=== PATIENT | male | born 1960 | race Caucasian/White ===

== ENCOUNTER 2019-06-04 21:54 | Inpatient (IN) | payer BC, OTHER ==
[~2019-06-04] VITALS: Ht 170.2 cm; Wt 63.6 kg
[2019-06-04 21:56] VITALS: BP 148/92
[2019-06-04 22:28] LABS: ABSOLUTE NEUTROPHILS 2.9 thou/uL (1.4-8.2); BASOPHILS 0.8 % (0.0-2.0); EOSINOPHILS 1.6 % (0.0-3.0); HEMATOCRIT 49.2 % (42.0-52.0); HEMOGLOBIN 16.4 gm/dL (14.0-18.0); LYMPHOCYTES 39.6 % (24.0-44.0); MCH 33.7 pg (26.0-34.0); MCHC 33.4 g/dL (28.0-37.0); MCV 100.9 fL (80.0-100.0); MONOCYTES 7.4 % (1.0-8.0); PLATELET COUNT 302 thou/uL (150-400); POLYS 50.6 % (36.0-66.0); RBC 4.87 mil/uL (4.50-6.00); RDW 14.4 % (10.5-14.5); WBC 5.7 thou/uL (4.0-11.0)
[2019-06-04 22:39] LABS: URINE BILIRUBIN NEGATIVE (Negative); URINE BLOOD TRACE (Negative); URINE CLARITY CLEAR; URINE COLOR YELLOW; URINE GLUCOSE-RANDOM* NEGATIVE (Negative); URINE KETONES 1+ (Negative); URINE LEUKOCYTES-REFLEX NEGATIVE (Negative); URINE NITRITE-REFLEX NEGATIVE (Negative); URINE PROTEIN (DIPSTICK) 1+ (Negative); URINE SPECIFIC GRAVITY >= 1.030 (1.005-1.035); URINE UROBILINOGEN 0.2 E.U./dl (0.2-1.0)
[2019-06-04 22:41] LABS: ANION GAP 18 mmol/L (7-16); BUN 12 mg/dL (7-18); CALCIUM 9.6 mg/dL (8.5-10.1); CHLORIDE 98 mmol/L (98-107); CO2 23 mmol/L (21-32); CREATININE 0.9 mg/dL (0.7-1.3); GLUCOSE 60 mg/dL (74-106); POTASSIUM 4.1 mmol/L (3.5-5.1); SODIUM 139 mmol/L (136-145)
[2019-06-04 22:45] LABS: AMP/METHAMP Negative (Negative); BARBITURATES Negative (Negative); BENZODIAZEPINES Negative (Negative); COCAINE Negative (Negative); METHADONE Negative (Negative); OPIATES Negative (Negative); PCP Negative (Negative)
[2019-06-04 22:48] LABS: ALBUMIN 4.3 g/dL (3.4-5.0); SALICYLATE 5.1 mg/dL (2.8-20.0); SGOT 51 U/L (15-37); SGPT 54 U/L (30-65); TOTAL BILIRUBIN 0.5 mg/dL (<0.1-1.0); TOTAL PROTEIN 8.1 g/dL (6.4-8.2)
[2019-06-04 23:13] LABS: HYALINE CASTS 0-3 Few /LPF (None Seen); MUCUS 0-3 Light strn/LPF (None Seen); SQUAMOUS None Seen /LPF (0-3)
[2019-06-04 23:14] LABS: BACTERIA-REFLEX None Seen /HPF (None Seen); CRYSTALS None Seen /LPF (None Seen); URINE RBC None Seen /HPF (0-2); URINE WBC-REFLEX 0-5 Rare /HPF (0-5)
[2019-06-05] VITALS (7 sets, daily range): BP systolic 114–135; BP diastolic 69–86
--- NOTE | 2019-06-05 04:12 | NUR ---
Patient arrived to [facility] ED via EMS reporting weakness over the last month. Upon assessment in ED, patient reporting increased depression and SI with plan to jump off a bridge or into traffic, or "if I had a gun, I'd shoot my head off". Patient alcohol level elevated in ED to 301. Re-checked prior to arrival to floor and was 211. Patient currently on CIWA protocol. Patient mildly tachycardic while in ED and since arriving to unit. Patient reports that he was admitted to [facility] 1.5 weeks ago due to "stomach issues". Reports that they discharged him and didn't take care of his issue. When asked what his issue was, he stated that his depression and drinking is "out of control". Reports that he has been drinking daily since his mother passed approximately 5 years ago. Reports that this is how he rey with stress and depression. Patient reports that he has been living in a motel with a roomate "John" for the last 2 years. Reports that his rent got too high at his apartment and he had to move out. Patient reports a history of hyperlipidemia and hypertension but never filled the medications prescribed. Patient unaware which medications they were. Patient rports PCP Dr. Lopez at [facility]. Currently receives Regular diet, Full code. NKDA. Patient reports that he has tried to quit drinking several times and his primary side effect is tremors in his hands. Patient reports depression as 7/10, anxiety 5/10. Patient is reporting excess sleeping with 10 hours per night and taking 2-3 hour nap during the day. Reporting that he primarily eats sandwiches for his intake. Denies weight loss. Patient does have a raised, pink rash to the lateral sides of his back and upper chest wall. Denies any itching. Reports that the rash has been there "for months" and his doctor "wasn't worried about it". Denies pain or discomfort. Reports that he wants the suicidal thoughts "to be done". Denies SI at this time due to feelings that he will "finally get some help". Patient currently smokes 1 PPD. Nicotine patch ordered. Patient did request medication due to acid reflux. Patient provided box lunch in ED and states that he has acid reflux frequently, which is why he was admitted to [facility]. Declines that any medications were prescribed. ED documentation states that he left [facility] AMA, patient states this is inaccurate. Patient has a yellow/brown bruise to the top of the left forearm. Patient states it is due to an IV from when he was at [facility]. Patient provided PRN Seroquel to ease agitation and PRN Maalox for acid reflux. Patient continent of bladder upon arrival to unit. Patient reports that he has insurance through [employer], when asked if he still works there, he states yes but he hasn't been to work for a couple months. Possible delusional thoughts regarding current job status. Denies HI/AH/VH. No aggression observed. Patient laying quietly in bed at this time.
--- NOTE | 2019-06-05 12:54 | NUR ---
ASSUMED CARE AT 0700 THIS MORNING. PT. IN RECLINING CHAIR RESTING. PT. RESTING. HE ATE MEALS ON THE UNIT WITH PEERS. HIS CIWA ASSESSMENT AT 1000 WAS 10. HE WAS GIVEN ATIVAN AT 1300 WITH HIS THIAMINE FOR HIS SHAKINESS. HE HAS BEEN ALERT AND ORIENTED TIMES 4. HE HAS TAKEN HIS MEDICATIONS WITHOUT PROBLEMS. HE IS ON YELLOW (FALLS PERCAUTIONS) DUE TO HIM DETOXING. HIS AFFECT IS NEUTRAL AND MOOD SOMBER. NO PROBLEMS NOTED FROM HIM AT THIS TIME. HE CONTINUES ON CIWA AT THIS TIME. WILL CONTINUE TO ASSESS.
--- NOTE | 2019-06-05 13:26 | EKG ---
[facility] [place] [address] ELECTROCARDIOGRAM REPORT Name: TOBY BALCK Room #: [facility] ADM IN M.R.#: [id number] Admission: 06/05/19 Attend Phys: Catarino Zuniga DO Discharge: Date of : 60 Report #: [id number] THIS REPORT FOR: cc: Roberto Lopez Brady DO Lundgren,Julio C Zepeda MD [facility] ~ THIS REPORT FOR: //name// [facility] Test Date: 2019-06-05 Test Time: 09:38:30 Pat Name: TOBY BLACK Department: Room: [facility] Gender: M Bookbinder Chief: Syd JACOBO : 1960 Requested By: Catarino Zuniga Order Number: [id number] MD: Julio C Lovett Measurements Intervals [place] Rate: 105 P: 70 CT: 150 QRS: 65 QRSD: 100 T: 83 QT: 341 QTc: 451 Interpretive Statements Sinus tachycardia Anterior infarct, old No previous ECG available for comparison Electronically Signed On 06-05-2019 13:25:49 CDT by Julio C Lovett [email or web address] <ELECTRONICALLY SIGNED> By: Julio C Lovett MD, FACC 06/05/19 1325 0938 Julio C Lovett MD, [facility] /EPI
--- NOTE | 2019-06-06 02:39 | NUR ---
PT SITTING IN DAY ROOM. DENIES PAIN. REQUESTED LORAZEPAM AT HS. VERY PLEASANT 1:1 CONVERSATION. RESTING COMFORTABLY. FREQUENT OBSERVATION.
[2019-06-06 08:01] VITALS: BP 140/94
--- NOTE | 2019-06-06 13:55 | NUR ---
COOPERATIVE AND PLEASANT WITH NURSING STAFF WHEN APPROACHED FOR AM ASSESSMENT AND MEDICATIONS-SMILING AND USING HUMOR. SOCIAL WITH FEMALE PEER AT TABLE. GAIT STEADY WITHOUT ASSISITVE DEVICES. DENIES N/V-NO HAND TREMOR NOTED DURING CIWA ASSESSMENT-NO DIAPHORESIS AND DENIES N/V. BP MILDLY ELEVATED PRIOR TO AM MEDICATION AT 140/94-BP RECHECK AT APPROX 1100 130/78. DENIES SI/SH/HI-RATES DEPRESSIVE SYMPTOMS A 4 ON 1-10 SCALE. DENIES ACUTE ANXIETY AND NEED FOR PRN LORAZEPAM-STATING "I MAY NEED IT LATER" GOOD APPETITE.
[2019-06-06 19:30] VITALS: BP 126/82
--- NOTE | 2019-06-07 08:41 | NUR ---
06/06/19 MARCELINA met with pt and discussed at length the d/c plans. SW provided education and support for outpt therapy and meds management with CM at [facility]. Sw encourged pt to access the resources to help with alternate housing. pt stated that he works at [employer] and he has BCBS with them . This was reported to administration. Will look for an insurance card. Pt seemed hopeful and willing to particpate in outpt treatment.
[2019-06-07 09:14] VITALS: BP 134/80
[2019-06-07 10:03] VITALS: BP 134/80
--- NOTE | 2019-06-07 13:42 | NUR ---
Assumed care around 0700. Patient very pleasant, cooperative, and respectiful to peers and staff. alert and oriented x 4. Vitals are stable. Room air. Lungs are clear and bowel sounds are audible. he states that today he feels better and less anxious like a 2. participates in the group therapy. Takes medication and food without any problem. Denies SI/HI. Ambulates around well. Verberlizes his needs. Calm and quite at times while watching. Will continue with the plan of caare.
[2019-06-07 19:22] VITALS: BP 129/93
--- NOTE | 2019-06-07 21:52 | NUR ---
Care assumed of patient at 1915: Patient seated in dayroom at start of shift. Watching TV, interacting well with staff and peers. Alert and oriented x4. Calm, pleasant and cooperative. Bright affect, smiling. Denies SI/HI/AH/VH. Reports "some" anxiety and depression. Patient reports that his tremors to his hands "worry" him. No tremors observed when he held his hands up. No sweating, nausea reported. No delusional or paranoia behaviors observed. Denies pain or discomfort. Ate 100% HS snack. Took HS medication whole without difficulty. Requested PRN Trazodone to help him sleep this shift. Reports that he is able to fall to sleep without much difficulty but has trouble staying asleep. Patient also reports that he did not sleep well last night but this nurse was present on the unit last night. Patient then started to discover that he was having nightmares through the night. Patient denies anything sticking out in his mind of what his dreams were. Patient was able to retire to bed at a reasonable hour and appears to be resting quietly at this time.
[2019-06-08 13:14] VITALS: BP 119/75
--- NOTE | 2019-06-08 13:44 | NUR ---
0700 ASSUMED CARE OF PATIENT. PATIENT IN DAYROOM AT THAT TIME. 0810 EATING BREAKFAST, CALM AND COOPERATIVE NO C/O PAIN, ALERT + ORIENTED X4, DENIES SI STATES "I WAS LAST WEEKEND BUT NOT NOW" DENIES HI/AH/VH. PATIENT STATES ANXIETY IS A 3 ON A SCALE OF 0-10 AMD DEPRESSION IS A 3 WELL. REQUESTS A SHOWER AFTER BREAKFAST STATES THAT IS HIS GOAL. PATIENTS CONCERN IS GOING BACK TO WORK. DENIES NEEDS. COMUNICATES WELL WITH OTHERS.
[2019-06-08 20:13] VITALS: BP 121/83
[2019-06-08 21:00] VITALS: BP 121/83
--- NOTE | 2019-06-09 00:41 | NUR ---
Assumed care of patient this pm shift. Patient sitting at a table by himself in the mileu. Patient in good spirits. Patient calm and cooperative. Patients affect is normal. Patient appears to be neat and clean. Patient asked about a new medication that he is supposed to start taking that would help with his etoh issues. Patient denies hi/si. Patients assessment shows clear breath sounds, active bowel sounds, and s1 s2 heard with auscultation. We will continue to monitor.
[2019-06-09 06:06] LABS: ALBUMIN 3.3 g/dL (3.4-5.0); CALCIUM 8.9 mg/dL (8.5-10.1); CREATININE 0.9 mg/dL (0.7-1.3); POTASSIUM 4.8 mmol/L (3.5-5.1); TOTAL BILIRUBIN 0.5 mg/dL (<0.1-1.0); TOTAL PROTEIN 6.3 g/dL (6.4-8.2)
[2019-06-09 08:59] VITALS: BP 140/88
[2019-06-09 14:14] VITALS: BP 140/88
--- NOTE | 2019-06-09 14:38 | NUR ---
PATIENT WAS UP IN DAY ROOM EATING BREAKFAST WHEN CARE ASSUMED. HE IS ALERT AND ORIENTED X 3-4, ABLE TO MAKE NEED KNOWN. PATIENT TOOK ALL MEDICATION WHOLE WITHOUT DIFFICULTY. PATIENT DENIES SUICIDAL/HOMICIDAL IDEATION. PATIENT RATED BOTH DEPRESSION/ANXIETY 5/10. HE DENIES HAVING PHYSICAL PAIN. PATIENT REPORTS HAD LARGE FORMED BOWEL MOVEMENT THIS AFTERNOON. AFFECT IS BRIGHT, MOOD IS HAPPY. PATIENT IS CALM, COOPERATIVE WITH CARE. PATIENT IS CONCERNED ABOUT NEW MEDICATION HE WAS SUPPOSED TO START YESTERDAY TO HELP WITH HIS ALCOHOL USE. "THE DOCTOR TOLD ME ABOUT IT". NEW MEDICATION "VITAMIN" STARTED THIS AFTERNOON. NO SIGN OF ACUTE DISTRESS NOTED AT THIS TIME, WILL MONITOR FOR SAFETY.
[2019-06-09 20:30] VITALS: BP 127/79
--- NOTE | 2019-06-09 22:40 | NUR ---
Care assumed of patient at 1915: Patient seated in dayroom at start of shift. Interacting well with staff and peers. Completing word searches, crossword puzzles and watching TV. Smiling, calm, pleasant and cooperative. Denies depression and anxiety. Denies SI/HI/AH/VH. Alert and oriented x4. Denies pain or discomfort. Took HS medication whole without difficulty. Ate 100% HS snack. Denies any complaints. Cheerful, helpful to staff and peers. Retired to bed at a reasonable hour and has been resting quietly. Patient did report concerns of other peers having cognitive impairment. Discussed reality of continuing to drink alcohol daily possibly leading to a future of cognitive impairment for him. This appeared to hit patient hard and stated he would use it as encouragment to quit drinking.
[2019-06-10 07:55] VITALS: BP 122/89
--- NOTE | 2019-06-10 09:11 | NUR ---
SW and pt discussed his d/c plans and how he can get to [facility] for wrap around services. 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 SW encoaurged him to use it for motivation and to focu son one goal/task at a time. Pt is satisfied with his saty on [facility].
[2019-06-10 11:57] VITALS: BP 122/89
--- NOTE | 2019-06-10 13:00 | NUR ---
PATIENT REMAIN ALERT AND ORIENTED X 4, ABLE TO VOICE NEED. HAS BEEN UP AND OUT ON THE UNIT THIS SHIFT, PARTICIPATING IN GROUP THERAPY. PATIENT IS EATING MEALS, AND DRINKING FLUID WELL. PATIENT TOOK ALL MEDICATION WHOLE WITHOUT DIFFICULTY. HE DENIES SUICIDAL/HOMICIDAL IDEATION, HE DENIES AUDITORY/VISUAL HALLUCINATION. PATIENT RATED BOTH DEPRESSION/ANXIETY 3/10, "AM DOING REALLY WELL, I HAD GOOD NIGHT REST". AFFECT IS CALM, MOOD IS HAPPY. PATIENT DENIES HAVING PHYSICAL PAIN, NO SIGN OF ACUTE DISTRESS NOTED AT THIS TIME, WILL MONITOR FOR SAFETY.
[2019-06-10 20:23] VITALS: BP 167/100
--- NOTE | 2019-06-10 22:33 | NUR ---
Care assumed of patient at 1915: Patient seated in dayroom at start of shift. Watching TV, completing word search puzzles. Interacting with staff and peers. Smiling, pleasant, calm, cooperative. Alert and oriented x4. Reported anxiety and depression as 3/10. Reports that it has made significant improvement but there is still "a little bit there". Took HS medication whole without difficulty. Ate 100% HS snack. Reports that Trazodone is very helpful in assisting his sleep. Denies SI/HI/AH/VH. No delusional or paranoia behaviors observed. Good insight to current situation. Patient retired to bed at a reasonable hour and is resting quietly at this time.
[2019-06-11 04:54] LABS: SGOT 54 U/L (15-37); SGPT 123 U/L (30-65)
[2019-06-11 08:36] VITALS: BP 120/81
--- NOTE | 2019-06-11 14:10 | NUR ---
VISIBLE IN DAYROOM INTERACTING WITH PEERS/WORKING ON CROSSWORD PUZZEL DURING FREE TIME-SPONTANEOUS SMILING AND CONVERSING WITH PEERS/STAFF. REPORTS GOOD APPETITE AND SLEEP, AND DESCRIBES MOOD "REAL GOOD ALL THINGS CONSIDERED" DENIES SI/SH/HI-DENIES ETOH CRAVINGS AND TALKS [place] REGARDING PLAN TO MAINTAIN SOBRIETY UPON DC FROM HOSPITAL. GAIT STEADY WITHOUT ASSISITVE DEVICES.
[2019-06-11 20:52] VITALS: BP 142/87
--- NOTE | 2019-06-12 02:52 | NUR ---
PATIENT ASSESSED AND IS ALERT X 4. SKIN WARM AND DRY. RESP EVEN AND UNLABORED. ABDOMEN SOFT WITH BS X 4. NO EDEMA NOTED TO LOWER EXTREMITIES. VERY COOPERATIVE BEHAVIOR THIS SHIFT. UP AD HO IN HALLWAY AND HIS ROOM WITH STEADY GAIT. VS STABLE. NO SI/HI THOUGHTS NOTED THIS SHIFT. SLEEPING WELL IN BED. STARTED PATIENT ON NALTREXONE THIS EVENING. CONT PLAN OF CARE. WILL MONITOR NEW MEDICATION EFFECT.
[2019-06-12 08:24] VITALS: BP 123/75
--- NOTE | 2019-06-12 10:39 | NUR ---
FULL RANGE AFFECT THIS AM-SOCIAL WITH STAFF AND PEERS-SPONTANOUES LAUGHING AND SMILING NOTED. DENIES SI/SH/HI. DENIES ACUTE ANXIETY. GAIT STEADY WITHOUT ASSISTIVE DEVICES. DENIES C/O PAIN/DISCOMFORT. APPETITE GOOD.
[2019-06-12] MEDS ORDERED: REVIA 50 MG TAB50 MG PO (14:09)
--- NOTE | 2019-06-12 16:45 | NUR ---
Date of Admission: 06/05/19 Date of Activity Therapy Assessment:06/09/2019 Activity Goal: Positive copins skills and impulse control Initial Goal: Two RT groups per day Weekly progress towards goal: On track Group participation level: Full Behaviors observed: Very engaged. Positive in groups. Enjoys crossword puzzles. Socially appropraite with peers. Plan: No change towards goal
[2019-06-12 19:30] VITALS: BP 142/83
[2019-06-12 21:15] VITALS: BP 142/83
--- NOTE | 2019-06-12 23:44 | NUR ---
PATIENT WAS UP IN DINING ROOM TONIGHT UNTIL HE WENT TO BED AROUND 2129. HE IS A/0 X 4. HE DENIES SI/HI/AVH. HE IS PLEASANT AND COOPERATIVE. HE HAD BM TONIGHT. HE IS CONCERNED ABOUT STARTING NALTREXONE IN THE MORNING. HE HAD STARTED IT LAST NIGHT AT HS AND TOOK IT WITH HIS GABAPENTIN AND TRAZADONE AND STATES IT MADE HIM ALOT SLEEPIER THAN USUAL. HE IS NOT WANTING TO BE SLEEPY DURING THE DAY IF NALTREXONE DOES THIS. I TOLD HIM TO WAIT AND SEE HOW IT AFFECTS HIM WHEN HE TAKES IT IN THE AM. TOLD HIM IT MAY HAVE BEEN MORE POTENT D/T THE OTHER MEDS HE HAD TAKEN WITH IT LAST NIGHT CAUSING HIM TO BE MORE SLEEPY. PATIENT STATES HE WILL TAKE IN MORNING AND ASSESS. PATIENT IS EAGER TO GO HOME. PATIENT AMBULATES ON HIS OWN. IS CONTINENT. DENIES PAIN. ROUTINE ROUNDING TO ASSESS FOR SAFETY. BED IN LOW POSITION.
--- NOTE | 2019-06-13 06:26 | NUR ---
PATIENT SLEPT WELL THRU NIGHT. HE WANTS TO TAKE THE NALTREXONE AT 0900 TODAY AND SEE HOW HE DOES WITH IT AND IF IF MAKES HIM TOO TIRED DURING THE DAY. HE WILL DECIDE AFTER THAT IF HE WANTS TO TAKE IT AT DAY OR NIGHT TIME. PATIENT IN GOOD SPIRITS THIS MORNING.
[2019-06-13 06:35] LABS: SGOT 30 U/L (15-37); SGPT 89 U/L (30-65)
--- NOTE | 2019-06-13 08:13 | NUR ---
MARCELINA met with pt to dicuss his d/c plans, pt would like to leave this afternoon around 2pm. SW will set up transportation with a taxi and pt will d/c to his motel room. MARCELINA set up oupt with [facility] and pt is aware of the walk in intake process. MARCELINA faxed d/c summary and orders to [facility]
[2019-06-13 08:49] VITALS: BP 103/71
--- NOTE | 2019-06-13 10:40 | NUR ---
Up ambulating in unit without s/o distress. Visiting with peers. States he is ready to go home but anxiety has increased to a 5 from a 3 d/t discharge. States he has a good support system at home but will miss the support of staff and peers here. States he is ready to get back to work and become more "workcentric". Denies SI/HI. Alert and orientated X4. Breath sounds clear t/o, bilaterally equal. Reg HR auscultated. Color pink with brisk capillary refill and palplable peripheral pulses, no edema noted. Independent with voiding. Active bowel sounds over soft, flat abdomen. 1.5 cm lipoma in middle of back. Calm and cooperative, compliant with meds.
[2019-06-13] MEDS ORDERED: TRAZODONE HCL100 MG PO (11:26)
[2019-06-13] MEDS ORDERED: VISTARIL 25 MG25 M1 PO (11:26)
[2019-06-13] MEDS ORDERED: VITAMIN B-1100 M2 PO (11:26)
[2019-06-13] MEDS ORDERED: GABAPENTIN 100100 MG PO (11:26)
[2019-06-13] MEDS ORDERED: NICOTINE TRANSD14 M1 TRANSDERM (11:26)
[2019-06-13] MEDS ORDERED: PRENATAL PO (11:26)
[2019-06-13 11:48] VITALS: BP 103/71
[2019-06-13 11:52] VITALS: BP 103/71
--- NOTE | 2019-06-13 11:58 | NUR ---
MARCELINA met with pt twice to discuss d/c instructions. SW made packet and left it on the chart. SW set up taxi and voucher left on chart for 2pm tack picker. This was reported to nursing. MARCELINA faxed the packet to [facility] and called and left a VM regarding his intake tomorrow. fax [phone]. Completed fax with coversheet left on chart.
[2019-06-13 13:50] VITALS: BP 103/71
== END 2019-06-13 14:00 | disposition home or self-care (01) | DRG 880 ==
LOC: ER 21:54 → SBH 06-05 01:47 → EROBS 06-05 01:47 → SBH 06-05 01:48
PROVIDERS: Physician Assistant; Psychiatry & Neurology Psychiatry; ADMIT Psychiatry & Neurology Psychiatry
DX: R45.851 Suicidal ideations (principal); I10 Essential (primary) hypertension; E78.5 Hyperlipidemia, unspecified; F10.10 Alcohol abuse, uncomplicated; Y90.9 Presence of alcohol in blood, level not specified; F17.210 Nicotine dependence, cigarettes, uncomplicated; F41.9 Anxiety disorder, unspecified; F32.9 Major depressive disorder, single episode, unspecified; Z80.1 Family history of malignant neoplasm of trachea, bronchus and lung
CPT/HCPCS: 10880

== ENCOUNTER 2019-09-11 19:21 | Emergency (ER) | payer BC ==
[~2019-09-11] VITALS: Ht 172.7 cm; Wt 61.2 kg
[~2019-09-11 19:21] MED LIST: GABAPENTIN 100100 MG PO; NICOTINE TRANSD14 M1 TRANSDERM; PRENATAL PO; REVIA 50 MG TAB50 MG PO; TRAZODONE HCL100 MG PO; VISTARIL 25 MG25 M1 PO; VITAMIN B-1100 M2 PO
[2019-09-11 19:54] LABS: ABSOLUTE NEUTROPHILS 3.5 thou/uL (1.4-8.2); BASOPHILS 0.4 % (0.0-2.0); EOSINOPHILS 1.8 % (0.0-3.0); HEMATOCRIT 43.3 % (42.0-52.0); HEMOGLOBIN 15.1 gm/dL (14.0-18.0); LYMPHOCYTES 28.3 % (24.0-44.0); MCH 34.9 pg (26.0-34.0); MCHC 34.9 g/dL (28.0-37.0); MCV 99.9 fL (80.0-100.0); MONOCYTES 6.5 % (1.0-8.0); PLATELET COUNT 197 thou/uL (150-400); RBC 4.33 mil/uL (4.50-6.00); RDW 13.3 % (10.5-14.5); WBC 5.6 thou/uL (4.0-11.0)
[2019-09-11 20:10] LABS: ANION GAP 11 mmol/L (7-16); BUN 3 mg/dL (7-18); CALCIUM 8.9 mg/dL (8.5-10.1); CHLORIDE 97 mmol/L (98-107); CO2 28 mmol/L (21-32); CREATININE 0.7 mg/dL (0.7-1.3); GLUCOSE 75 mg/dL (74-106); POTASSIUM 3.4 mmol/L (3.5-5.1); SODIUM 136 mmol/L (136-145)
[2019-09-11 20:16] LABS: ALBUMIN 3.7 g/dL (3.4-5.0); LIPASE 73 U/L (73-393); SGOT 30 U/L (15-37); SGPT 34 U/L (30-65); TOTAL BILIRUBIN 0.7 mg/dL (0.2-1.0); TOTAL PROTEIN 6.9 g/dL (6.4-8.2); TROPONIN-I <0.06 ng/mL (<0.06)
[2019-09-11 20:22] VITALS: BP 141/98
[2019-09-11] MEDS ORDERED: PEPCID20 MG PO (20:30)
--- NOTE | 2019-09-12 07:50 | EKG ---
[facility] [place] [address] ELECTROCARDIOGRAM REPORT Name: TOBY BLACK Room #: DEP [facility]#: [id number] Admission: 09/11/19 Attend Phys: Discharge: 09/11/19 Date of : 60 Report #: [id number] THIS REPORT FOR: cc: Roberto Lopez Brady DO Lundgren,Julio C Zepeda MD [facility] THIS REPORT FOR: //name// [facility] ED Test Date: 2019-09-11 Test Time: 19:32:14 Pat Name: TOBY BLACK Department: Room: Gender: Driver Service Technician: [facility] : 1960 Requested By: Vishal Nobles Order Number: [id number] MD: JulioC Lovett Measurements Intervals [place] Rate: 91 P: 68 AR: 147 QRS: 47 QRSD: 97 T: 64 QT: 358 QTc: 441 Interpretive Statements Sinus rhythm Probable anteroseptal infarct, old Compared to ECG 06/05/2019 09:38:30 Sinus tachycardia no longer present Electronically Signed On 09-12-2019 7:48:50 CDT by Julio C Lovett [email or web address] <ELECTRONICALLY SIGNED> By: Julio C Lovett MD, [facility] 09/12/19 0748 31 31 Julio C Lovett MD, [facility] /EPI
== END 2019-09-11 20:53 | disposition home or self-care (01) ==
LOC: ER 19:21
PROVIDERS: Emergency Medicine
DX: R10.13 Epigastric pain (principal); R53.83 Other fatigue; J02.9 Acute pharyngitis, unspecified; R53.1 Weakness; E78.5 Hyperlipidemia, unspecified; I10 Essential (primary) hypertension; F17.210 Nicotine dependence, cigarettes, uncomplicated; Z79.899 Other long term (current) drug therapy

== ENCOUNTER 2019-09-20 22:11 | Inpatient (IN) | payer BC ==
[~2019-09-20] VITALS: Wt 64.4 kg
[~2019-09-20 22:11] MED LIST changes: +PEPCID20 MG PO
[2019-09-20 22:27] VITALS: BP 144/102
[2019-09-20 22:52] LABS: ABSOLUTE NEUTROPHILS 5.4 thou/uL (1.4-8.2); BASOPHILS 0.3 % (0.0-2.0); EOSINOPHILS 0.1 % (0.0-3.0); HEMATOCRIT 46.7 % (42.0-52.0); HEMOGLOBIN 15.9 gm/dL (14.0-18.0); LYMPHOCYTES 10.1 % (24.0-44.0); MCH 34.7 pg (26.0-34.0); MCHC 34.1 g/dL (28.0-37.0); MCV 101.8 fL (80.0-100.0); MONOCYTES 6.8 % (1.0-8.0); PLATELET COUNT 186 thou/uL (150-400); POLYS 82.7 % (36.0-66.0); RBC 4.59 mil/uL (4.50-6.00); RDW 14.5 % (10.5-14.5); WBC 6.5 thou/uL (4.0-11.0)
[2019-09-20 23:00] LABS: ANION GAP 24 mmol/L (7-16); CHLORIDE 90 mmol/L (98-107); CO2 16 mmol/L (21-32); POTASSIUM 4.4 mmol/L (3.5-5.1); SODIUM 130 mmol/L (136-145)
[2019-09-20 23:17] LABS: SALICYLATE 5.4 mg/dL (2.8-20.0)
[2019-09-20 23:23] LABS: ALBUMIN 3.9 g/dL (3.4-5.0); BUN 13 mg/dL (7-18); CALCIUM 8.8 mg/dL (8.5-10.1); GLUCOSE 50 mg/dL (74-106); LIPASE 49 U/L (73-393); SGOT 296 U/L (15-37); SGPT 177 U/L (30-65); TOTAL BILIRUBIN 0.6 mg/dL (0.2-1.0); TOTAL PROTEIN 7.2 g/dL (6.4-8.2); TROPONIN-I <0.06 ng/mL (<0.06)
[2019-09-20 23:36] LABS: URINE BILIRUBIN NEGATIVE (Negative); URINE BLOOD 1+ (Negative); URINE CLARITY CLEAR; URINE COLOR YELLOW; URINE GLUCOSE-RANDOM* NEGATIVE (Negative); URINE KETONES 2+ (Negative); URINE LEUKOCYTES-REFLEX NEGATIVE (Negative); URINE NITRITE-REFLEX NEGATIVE (Negative); URINE PROTEIN (DIPSTICK) 1+ (Negative); URINE SPECIFIC GRAVITY >= 1.030 (1.005-1.035); URINE UROBILINOGEN 0.2 E.U./dl (0.2-1.0)
[2019-09-20 23:45] LABS: AMP/METHAMP Negative (Negative); BARBITURATES Negative (Negative); BENZODIAZEPINES Negative (Negative); COCAINE Negative (Negative); METHADONE Negative (Negative); OPIATES Negative (Negative); PCP Negative (Negative)
[2019-09-21 00:04] LABS: BACTERIA-REFLEX None Seen /HPF (None Seen); CASTS None Seen /LPF (None Seen); CRYSTALS None Seen /LPF (None Seen); MUCUS 0-3 Light strn/LPF (None Seen); SQUAMOUS 0-3 Few /LPF (0-3); URINE RBC 3-10 Few /HPF (0-2); URINE WBC-REFLEX 0-5 Rare /HPF (0-5)
[2019-09-21 01:07] LABS: MAGNESIUM 1.6 mg/dL (1.8-2.4); PHOSPHORUS 5.2 mg/dL (2.5-4.9)
[2019-09-21 01:35] LABS: FOLIC ACID 16.9 ng/mL (8.6-58.9)
[2019-09-21 01:42] VITALS: BP 146/82
[2019-09-21 01:46] LABS: CHOLESTEROL 255 mg/dL (<200); HDL CHOLESTEROL 136 mg/dL (>40); LDL CHOLESTEROL 97 mg/dL (<100); SERUM ASSESSMENT Clear; TC:HDL 1.9 Ratio (Not establshd); TRIGLYCERIDE 111 mg/dL (<150); VLDL 22 mg/dL (<40)
--- NOTE | 2019-09-21 01:46 | NUR ---
CALLED TO GIVE REPORT, WAS TOLD NURSE IS ON LUNCH AND CHARGE IS IN A PATIENT ROOM, WAS TOLD TO EXPECT A CALL BACK IN 15 MINUTES
[2019-09-21 02:15] VITALS: BP 141/85
[2019-09-21 03:00] VITALS: BP 140/76
[2019-09-21 06:00] VITALS: BP 146/77
--- NOTE | 2019-09-21 07:33 | EKG ---
[facility] [place] [address] ELECTROCARDIOGRAM REPORT Name: TOBY BLACK Room #: 462- ADM IN M.R.#: [id number] Admission: 09/21/19 Attend Phys: Yakov Lu Discharge: Date of : 60 Report #: [id number] THIS REPORT FOR: cc: Roberto Lopez Brady DO Lundgren,Julio C Zepeda MD [facility] THIS REPORT FOR: //name// [facility] ED Test Date: 2019-09-20 Test Time: 22:49:54 Pat Name: TOBY BLACK Department: Room: [facility] Gender: M Liquid Flavor Compounder: HANANE : 1960 Requested By: Bony Garnett Order Number: [id number] MD: Julio C Lovett Measurements Intervals [place] Rate: 109 P: 79 CO: 144 QRS: 60 QRSD: 99 T: 74 QT: 321 QTc: 433 Interpretive Statements Sinus tachycardia Consider anterior infarct Compared to ECG 09/11/2019 19:32:14 Heart rate has increased Electronically Signed On 09-21-2019 7:32:46 CDT by Julio C Lovett [email or web address] <ELECTRONICALLY SIGNED> By: Julio C Lovett MD, [facility] 09/21/19 0732 2249 2249 Julio C Lovett MD, [facility] /EPI
--- NOTE | 2019-09-21 08:31 | NUR ---
chart review, cm consulted. cm visit with pt at bedside, he has 1 to 1 sitter at bedside. cm wear own personal facial mask during visit. intro to cm, dcp, safe net packet, inpt outpt support for acholic abuse, ie [facility], [facility], aa. pt preferrs going by [facility] x 3, pleasant and able to make his needs know. " live [place] [address] [place] [address] in [facility]. have 1 roommate. take bus. no dme equip. drinking allot less lately on 6oz whisky. i work a [employer] max. independent when feel ok. had depression and thoughts of SI in past. no rehab in past. going to call [facility]. been to [facility] here before and would be ok to go there"/[facility]. will cont following as needed for dc needs. marianela consult.
--- NOTE | 2019-09-21 08:32 | NUR ---
ADMIT PT ADMITTED FROM ED TO ROOM 462 FOR ETOH WITHDRAWAL AND SI. PT CALM CIWA SCORE 1 ATIVAN GIVEN X 1 WITH EFFECT PT SLEPT AFTER. 15 MINUTES CHECKS COMPLETED BY BEDSIDE SITTER HOURLY CHECKS BY RN, IVF'S INFUSING ORDERED. PT TOLERATING CLEAR LIQUIDS STILL REPORTING GASTRIC PAIN.
[2019-09-21] MEDS ORDERED: MULTI VITAMIN1 EACH (08:37)
[2019-09-21] MEDS ORDERED: ASA81BEC PO (08:37)
--- NOTE | 2019-09-21 08:44 | NUR ---
ASSUMED CARE OF PT AT SHIFT CHANGE, HAS SITTER STATES HE FEELS DEPRESSED, A&0X4, TREMORS NOTICEABLE WELL ANXIETY, GAVE GENTLE EDUCATION ON MEDICATION AND ETOH W/D, ENCOURAGED HIM AND SITTER TO USE CALL LIGHT FOR ANY NEEDS, STATES HE WALKS INDEPENDENTLY NORMALLY, SBA FOR SAFETY/MED ADM, WILL WRAP IV IT'S AC AND CONTINUIALLY BEEPING CAUSING FOR AGITATION. SEE SEPARATE INTERVENTIONS FOR ASSESSMENTS
[2019-09-21 12:03] LABS: PROTIME 10.7 Seconds (9.3-11.4)
[2019-09-21 18:44] VITALS: BP 120/84
--- NOTE | 2019-09-22 05:58 | NUR ---
VSS-AFEBRILE. CWAA RUNNING BETWEEN 8-15. SYMPTOMS WELL CONTROLLED WITH PRESCRIBED ATIVAN. SITTER REMAINS AT BEDISDE, NO REPORTED SUICIDAL IDEATION. FALL PRECAUTIONS IN PLACE, CALLS APPROPRIATELY FOR ANY NEEDED ASSISTANCE.
[2019-09-22 06:02] LABS: ALBUMIN 3.1 g/dL (3.4-5.0); CALCIUM 8.4 mg/dL (8.5-10.1); CREATININE 0.7 mg/dL (0.7-1.3); POTASSIUM 3.6 mmol/L (3.5-5.1); TOTAL BILIRUBIN 0.8 mg/dL (0.2-1.0); TOTAL PROTEIN 5.8 g/dL (6.4-8.2)
[2019-09-22 08:08] VITALS: BP 124/86
[2019-09-22 09:08] LABS: HAV IgM AB (ANTI-HAV IgM) Negative (Negative); HEPATITIS B SURFACE AG Negative (Negative); HEPATITIS C VIRUS AB <0.1 (0.0-0.9)
[2019-09-22 10:58] VITALS: BP 124/86
[2019-09-22 11:17] VITALS: BP 124/86
[2019-09-22 12:04] VITALS: BP 103/66
--- NOTE | 2019-09-22 14:43 | NUR ---
Assumed pt care at 7am. Pt in bed resting without c/o with sitter at bs. Assessment completed by Leny davies early this shift before returned to [facility]. Abdominal us completed this am.Pudding given by leny per pt request. Received call form [facility] that pt will be picked up between 1500&1600 for egd. Pt kept npo till leaving for procedure.Iv meds given as scheduled.Will continue to monitor.
[2019-09-22 15:59] VITALS: BP 135/96
[2019-09-22 20:14] VITALS: BP 102/74
--- NOTE | 2019-09-22 20:38 | NUR ---
ASSUMED CARE OF PT AT 1900. PT IS A/O AND WAS RESTING IN HIS BED WITH EYES CLOSED APPEARING TO SLEEP. WHILE ASSESSING PT IT WAS NOTED THAT PT HAD DISCONTINUED RIGHT AC IV WITH CATHETER INTACT. IV WAS REPLACED IN LEFT FOREARM. PT IS NOW SITTING UP IN HIS BED APPEARING TO BE WATCHING TV. SITTER IN ROOM. FALL PRECAUTIONS IN PLACE. WILL CONTINUE TO MONITOR.
--- NOTE | 2019-09-23 01:28 | NUR ---
ASSUMED CARE OF PT AT 1900. PT IS A/O X4. C/O TREMORS, HEADACHE, AND HALLUCINATIONS. MEDICATION PROVIDED DIRECTED PER CIWA SCORE. SITTER IS AT THE BEDSIDE. C/O NAUSEA. PRN NAUSEA MEDICATION GIVEN ORDERED. IS NOW NPO OF MIDNIGHT AWAITING EGD TOMORROW. APPEARS TO BE SLEEPING IN HIS BED AT THIS TIME. FALL PRECAUTIONS ARE IN PLACE. WILL CONTINUE TO MONTIOR.
[2019-09-23 05:48] LABS: CALCIUM 8.7 mg/dL (8.5-10.1); CREATININE 0.8 mg/dL (0.7-1.3); MAGNESIUM 1.9 mg/dL (1.8-2.4); PHOSPHORUS 2.7 mg/dL (2.5-4.9); POTASSIUM 3.6 mmol/L (3.5-5.1)
[2019-09-23 08:24] VITALS: BP 110/79
[2019-09-23 09:56] LABS: HEMATOCRIT 43.3 % (42.0-52.0); HEMOGLOBIN 14.5 gm/dL (14.0-18.0); MCH 34.5 pg (26.0-34.0); MCHC 33.5 g/dL (28.0-37.0); MCV 103.1 fL (80.0-100.0); RBC 4.2 mil/uL (4.50-6.00); WBC 4.1 thou/uL (4.0-11.0)
[2019-09-23 14:00] VITALS: BP 110/78
--- NOTE | 2019-09-23 14:28 | NUR ---
PT HAD EGD THIS DAY. PSYC IS FOLLOWING AND HAD INDICATED POSSIBLE ADMISSION TO [facility] ONCE MEDICALLY STABLE. SHOULD PT BE MEDICALLY STABLE TO DC OVER WEEKEND CONTACT [facility] . CM TO FOLLOW INDICATED WITH DC PLANNING.
[2019-09-23 16:15] VITALS: BP 115/87
[2019-09-23 19:18] VITALS: BP 99/72
--- NOTE | 2019-09-23 19:52 | NUR ---
PATIENT ALERT AND ORIENTED AND COOPERATIVE WITH POC. PATIENT TO ENDOSCOPY PER WHEELCHAIR, THEN BACK TO ROOM VIA CART SUCCESSFULLY WITH NO EVENTS. 1:[address] OBSCH THIS AFTERNOON. LEFT FOREARM PIV SHOWING SIGNS OF SWELLING THIS EVENING. NOTIFIED EVENING RN IN REPORT HANDOFF.
--- NOTE | 2019-09-24 02:32 | NUR ---
ASSUMED PT CARE AT 1900. PT IS A/O X4. DENIES SI. C/O ANXIETY AND MILD NAUSEA. PRN ANXIETY AND NAUSEA MEDICATION GIVEN DIRECTED. PT IS CURRENTLY IN HIS BED AND APPEARS TO BE SLEEPING. FALL PRECAUTIONS ARE IN PLACE, CALL LIGHT WITHIN REACH. PROGRESSING TOWARDS DC GOALS.
[2019-09-24 03:48] VITALS: BP 100/71
[2019-09-24 07:44] VITALS: BP 116/81
[2019-09-24] MEDS ORDERED: TRAZODONE HCL50 MG PO (10:25)
[2019-09-24] MEDS ORDERED: LAMISIL AT 1% C12 G1 TOP (10:26)
[2019-09-24] MEDS ORDERED: VITAMIN B-1100 M2 PO (10:26)
[2019-09-24] MEDS ORDERED: CHLORDIAZEPOXID25 M1 PO (10:26)
[2019-09-24 15:45] VITALS: BP 111/73
[2019-09-24 20:33] VITALS: BP 111/66
--- NOTE | 2019-09-24 20:56 | NUR ---
ASSUMED PT CARE AT 0700. PT ALERT X ORIENTED X4. ONE PERSON ASST WITH WALKER AND GAIT BELT. ON ROOM AIR. PT WAS DISCHARGET TO [facility], CALLED [facility], BUT TOLD THEY WERE NOT ACCEPTING NEW ADMISSION ON WEEKENDS. INDEPENDENT VIDEO PRODUCER NOTIFIED. PSYCH DOCTOR CAME TO THE UNIT, RN TOLD HER THE DISCHARGE ISSUE. PATIED VOMITE ONE TIME WHILE THE PSYCH DOCTOR WAS HERE IN THE UNIT, SHE SAID NOT TO DISCAHRGE THE PATIENT TODAY. ZOFRAN GIVEN.PATIENT DOING WELL. PATIENT WILL CALL FOR HELP. MONITORING CONT. SHIFT REPORT GIVEN TO NIGHT NURSE.
--- NOTE | 2019-09-25 03:52 | NUR ---
PATIENT ALERT AND ORIENTED X3-4. COOPERATIVE WITH CARE, HOWEVER, DELAYED IN FOLLOWING DIRECTIONS. POSSIBLE D/C TO [facility] ON THURSDAY. VOIDING PER URINAL. DENIES PAIN. RESTING QUIETLY. WILL MONITOR.
[2019-09-25 05:43] LABS: ABSOLUTE NEUTROPHILS 2.6 thou/uL (1.4-8.2); BASOPHILS 0.5 % (0.0-2.0); HEMATOCRIT 39.3 % (42.0-52.0); HEMOGLOBIN 13.5 gm/dL (14.0-18.0); LYMPHOCYTES 26.7 % (24.0-44.0); MCH 34.9 pg (26.0-34.0); MCHC 34.2 g/dL (28.0-37.0); MCV 101.9 fL (80.0-100.0); MONOCYTES 11.1 % (1.0-8.0); PLATELET COUNT 149 thou/uL (150-400); POLYS 58.7 % (36.0-66.0); RBC 3.86 mil/uL (4.50-6.00); WBC 4.5 thou/uL (4.0-11.0)
[2019-09-25 06:18] LABS: ALBUMIN 2.7 g/dL (3.4-5.0); CALCIUM 8.6 mg/dL (8.5-10.1); CREATININE 0.8 mg/dL (0.7-1.3); POTASSIUM 3.8 mmol/L (3.5-5.1); TOTAL BILIRUBIN 0.3 mg/dL (0.2-1.0)
[2019-09-25 07:50] VITALS: BP 101/70
[2019-09-25 15:55] VITALS: BP 103/67
--- NOTE | 2019-09-25 16:26 | NUR ---
Assumed pt care at 7am.Pt in bed resting without c/o.Assessment completed.vss. Pt tolerated meds and diet.Dr Castellon here,wanted pt to take few steps with assist and walker.This rn assisted pt in the room.Good endurance noted.Pt left for ct scan later this afternoon and returned to bed.Pt was up in chair today for over 2 hours.No verbal c/o.Will continue to monitor.
[2019-09-25 20:14] VITALS: BP 108/58
--- NOTE | 2019-09-26 03:47 | NUR ---
ASSUMED CARE OF PT AT 1900HRS. PT AO AND LETS NEEDS BE KNOWN. FALL PRECAUTION IN PLACE. PT DINIED SI, HI, PAIN, NAUSEA OR SOA. ASSESSMENT CHARTED. NO S/S OF ETOH WITHDRAWAL NOTED. PT WAS ABLE TO GET COMFORTABLE AND SLEEP PART OF THE SHIFT. PT IS NSR ON TELE. VSS AND NO S/S OF ACUTE DISTRESS. WILL CONTINUE TO MONITOR FOR CHANGES.
[2019-09-26 07:43] VITALS: BP 104/73
[2019-09-26 11:39] VITALS: BP 104/73
--- NOTE | 2019-09-26 11:48 | NUR ---
ASSUMED PT CARE AROUND 0700. PATIENT ALERT X ORIENTED X 4. FALL PRECAUTION IN PLACE. PT PLEASANT. STAND BY ASST FOR SAFETY. USES URINAL AT BEDSIDE.LBM ON 09/24/19.ON ROOM AIR. NO ALCHOLO WITHDRAWAL SYMPTOMS OR SI NOW. EATING WELL. IV RT FORE ARM. WILL CONT TO MONITOR.
--- NOTE | 2019-09-26 14:51 | NUR ---
CARE TEAM HAD INDICATED THAT PT WAS TO BE SEEN BY PT AND OT THIS DAY TO SEE IF HE WAS STRONG ENOUGH TO GO TO [facility]. PT VARIENCED PT HE WAS ON HIS WAY OFF UNIT. LOOKS THOUGH PT WAS ACCEPTED TO [facility] THIS DAY. NO OTHER CM INTERVENTION INDICATED. CASE CLOSED.
[2019-09-26] MEDS ORDERED: PROTONIX40 M2 PO (16:33)
[2019-09-26] MEDS ORDERED: NEURONTIN100 MG PO (16:35)
[2019-09-26] MEDS ORDERED: PRENATAL PO (16:46)
[2019-09-26] MEDS ORDERED: NICODERM CQ1 EACH TRANSDERM (16:52)
[2019-09-26] MEDS ORDERED: HYDROXYZINE PAM25 M1 PO (16:56)
[2019-09-26] MEDS ORDERED: LAMISIL AT 1% C12 G1 TOP (16:59)
--- NOTE | 2019-09-26 18:06 | PATH ---
[facility] [address] [place] [address] PATHOLOGY RPT PROCEDURE Name: TOBY BLACK Room #: 462-P [facility] IN M.R.#: [id number] Admission: 09/21/19 Date of : 60 Discharge: 09/26/19 Report #: [id number] Path Case #: [id number] [facility] Accession Number: [id number] . 01 Material submitted: . PART A: duodenum - BIOPSY OF DUODENUM PART B: stomach - BIOPSY OF GASTRITIS . 01 Clinical history: . Hematemesis . 02 Diagnosis: A. Small bowel mucosa, duodenum, endoscopic biopsy: - Fundic-type metaplasia with mild chronic inflammation compatible with mild peptic duodenitis. - Negative for villous blunting or increase in intraepithelial lymphocytes. . B. Gastric mucosa, gastritis, endoscopic biopsy: - Mild reactive gastropathy. - Negative for intestinal metaplasia or atrophy. - Negative for Helicobacter pylori (properly controlled immunohistochemical stain performed). . 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 02 Electronically signed: . Aure Asencio MD, Pathologist NPI- [id number] . 01 Gross description: . A. The specimen is received in formalin, labeled "Toby Black, biopsy of duodenum". Received are four segments of pale monique soft tissue ranging in size from 0.3 to 0.4 cm in maximum dimensions. The specimen is submitted entirely in cassette A1. . B. The specimen is received in formalin, labeled "Toby De Jesuson, random biopsy of gastritis, R/O H. pylori". Received are five segments of pale monique soft tissue ranging in size from 0.2 to 0.6 cm in maximum dimensions. The specimen is submitted entirely in cassette B1. (CAA; 09/23/2019) QAC/QAC 09/23/2019 1620 Local . 02 Pathologist provided ICD-10: K29.80, K31.7 . 02 [place] [address] PATHOLOGY RPT PROCEDURE Name: TOBY BLACK Room #: 462-P [facility] M.R.#: [id number] Admission: 09/21/19 Date of : 60 Discharge: 09/26/19 Report #: [id number] Path Case #: [id number] [facility] . [id number], [id number], [id number] Specimen Comment: A courtesy copy of this report has been sent to [phone], [phone] Specimen Comment: [phone], Specimen Comment: Report sent to ,DR HACKETT / DR BEGUM Performed at: [address], [place] [id number] MD Lior Junior MD Phone: [phone] Performed at: [address] [id number] MD Aure Asencio MD Phone: [phone]
== END 2019-09-26 14:38 | DRG 378 ==
LOC: ER 22:11 → 4W 09-21 00:40 → EROBS 09-21 00:40 → 4W 09-21 02:16
PROVIDERS: Emergency Medicine; Nurse Practitioner; Nurse Practitioner Family; Psychiatry & Neurology Psychiatry; ADMIT Hospitalist; ATTEND Hospitalist
PROC: 0DB68ZX Excision of Stomach, Via Natural or Artificial Opening Endoscopic, Diagnostic (ICD-10-PCS; principal; 2019-09-23)
PROC: 0DB98ZX Excision of Duodenum, Via Natural or Artificial Opening Endoscopic, Diagnostic (ICD-10-PCS; principal; 2019-09-23)
DX: K29.21 Alcoholic gastritis with bleeding (principal); R45.851 Suicidal ideations; F10.239 Alcohol dependence with withdrawal, unspecified; K29.81 Duodenitis with bleeding; K44.9 Diaphragmatic hernia without obstruction or gangrene; E78.5 Hyperlipidemia, unspecified; F17.210 Nicotine dependence, cigarettes, uncomplicated; B36.0 Pityriasis versicolor; E16.2 Hypoglycemia, unspecified; K21.9 Gastro-esophageal reflux disease without esophagitis; F32.9 Major depressive disorder, single episode, unspecified; F41.9 Anxiety disorder, unspecified; F10.20 Alcohol dependence, uncomplicated; K31.84 Gastroparesis; I86.4 Gastric varices; I10 Essential (primary) hypertension; K22.2 Esophageal obstruction; E11.43 Type 2 diabetes mellitus with diabetic autonomic (poly)neuropathy; Z80.1 Family history of malignant neoplasm of trachea, bronchus and lung; Z81.8 Family history of other mental and behavioral disorders; Z79.82 Long term (current) use of aspirin; Z88.8 Allergy status to other drugs, medicaments and biological substances; Z79.899 Other long term (current) drug therapy; Z03.818 Encounter for observation for suspected exposure to other biological agents ruled out; K70.9 Alcoholic liver disease, unspecified; K70.0 Alcoholic fatty liver; Y90.6 Blood alcohol level of 120-199 mg/100 ml
CPT/HCPCS: 10045; 62110; 62900; 70005

== ENCOUNTER 2019-09-26 16:14 | Inpatient (IN) | payer BC ==
[~2019-09-26] VITALS: Ht 170.2 cm; Wt 65.7 kg
[~2019-09-26 16:14] MED LIST changes: +ASA81BEC PO; +CHLORDIAZEPOXID25 M1 PO; +LAMISIL AT 1% C12 G1 TOP; +MULTI VITAMIN1 EACH; +TRAZODONE HCL50 MG PO
[2019-09-26 16:20] VITALS: BP 111/69
[2019-09-26] MEDS ORDERED: PROTONIX40 M2 PO (16:33)
[2019-09-26] MEDS ORDERED: NEURONTIN100 MG PO (16:35)
[2019-09-26] MEDS ORDERED: PRENATAL PO (16:46)
[2019-09-26] MEDS ORDERED: NICODERM CQ1 EACH TRANSDERM (16:52)
[2019-09-26] MEDS ORDERED: HYDROXYZINE PAM25 M1 PO (16:56)
[2019-09-26] MEDS ORDERED: LAMISIL AT 1% C12 G1 TOP (16:59)
[2019-09-26 20:14] VITALS: BP 117/83
[2019-09-27 09:29] VITALS: BP 111/74
[2019-09-27 19:55] VITALS: BP 123/68
[2019-09-28 09:01] VITALS: BP 104/73
[2019-09-28 19:37] VITALS: BP 113/74
[2019-09-29 07:29] VITALS: BP 113/73
[2019-09-29 20:09] VITALS: BP 127/84
[2019-09-30 09:03] VITALS: BP 125/80
[2019-09-30 20:07] VITALS: BP 131/84
[2019-10-01 13:30] VITALS: BP 116/84
[2019-10-01 19:57] VITALS: BP 120/76
[2019-10-02 08:49] VITALS: BP 135/90
[2019-10-02 19:30] VITALS: BP 148/87
[2019-10-03 07:48] VITALS: BP 111/79
[2019-10-03 10:26] VITALS: BP 111/79
[2019-10-03 20:00] VITALS: BP 133/82
[2019-10-04 06:10] LABS: ALBUMIN 3.2 g/dL (3.4-5.0); CALCIUM 8.8 mg/dL (8.5-10.1); CREATININE 0.9 mg/dL (0.7-1.3); POTASSIUM 4.2 mmol/L (3.5-5.1); TOTAL BILIRUBIN 0.3 mg/dL (0.2-1.0); TOTAL PROTEIN 6.1 g/dL (6.4-8.2)
[2019-10-04 08:55] VITALS: BP 119/92
[2019-10-04 09:36] VITALS: BP 119/92
[2019-10-04 20:13] VITALS: BP 136/82
[2019-10-04] MEDS ORDERED: REVIA 50 MG TAB50 M1 PO (21:04)
[2019-10-04] MEDS ORDERED: GABAPENTIN 100100 MG PO (21:05)
[2019-10-04] MEDS ORDERED: TRAZODONE HCL100 MG PO (21:05)
[2019-10-04] MEDS ORDERED: VISTARIL 25 MG25 M1 PO (21:05)
[2019-10-04] MEDS ORDERED: PEPCID20 MG PO (21:06)
[2019-10-04] MEDS ORDERED: LAMISIL AT 1% C12 G1 TOP (21:06)
[2019-10-04] MEDS ORDERED: PRENATAL PO (21:07)
[2019-10-04] MEDS ORDERED: HYDROCORTISONE30 G9 TOP (21:07)
[2019-10-05 08:30] VITALS: BP 123/82
[2019-10-05] MEDS ORDERED: NICODERM CQ1 EACH TRANSDERM (14:16)
[2019-10-05] MEDS ORDERED: PEPCID20 MG PO (14:19)
[2019-10-05] MEDS ORDERED: TRAZODONE HCL100 MG PO (14:19)
[2019-10-05] MEDS ORDERED: ASA81BEC PO (14:19)
[2019-10-05] MEDS ORDERED: HYDROCORTISONE30 G9 TOP (14:19)
[2019-10-05] MEDS ORDERED: LAMISIL AT 1% C12 G1 TOP (14:19)
[2019-10-05] MEDS ORDERED: PRENATAL PO (14:19)
[2019-10-05] MEDS ORDERED: VISTARIL 25 MG25 M1 PO (14:19)
[2019-10-05] MEDS ORDERED: GABAPENTIN 100100 MG PO (14:19)
[2019-10-05] MEDS ORDERED: REVIA 50 MG TAB50 M1 PO (14:19)
[2019-10-05 17:13] VITALS: BP 123/82
[2019-10-05 20:34] VITALS: BP 128/78
[2019-10-06 07:53] VITALS: BP 120/86
[2019-10-06 10:45] VITALS: BP 120/86
== END 2019-10-06 13:00 | disposition home or self-care (01) | DRG 880 ==
LOC: SBH 16:14
PROVIDERS: ADMIT Psychiatry & Neurology Psychiatry; ATTEND Psychiatry & Neurology Psychiatry
DX: F41.9 Anxiety disorder, unspecified (principal); R45.851 Suicidal ideations; E87.2 Acidosis; F32.9 Major depressive disorder, single episode, unspecified; I10 Essential (primary) hypertension; E78.5 Hyperlipidemia, unspecified; G72.9 Myopathy, unspecified; K29.20 Alcoholic gastritis without bleeding; Z88.8 Allergy status to other drugs, medicaments and biological substances; Z79.899 Other long term (current) drug therapy; Z79.82 Long term (current) use of aspirin
CPT/HCPCS: 10880